=== PATIENT | female | born 1980 | race Hispanic/Latino ===

== ENCOUNTER 2021-05-18 10:35 | Emergency (ER) | payer MEDICARE ==
[~2021-05-18] VITALS: Ht 162.6 cm; Wt 90.7 kg
[~2021-05-18 10:35] MED LIST: CALC0.253 PO; CLOB10TA PO; FOLI1TAB15 PO; HALO1TAB PO; LAMO200T10 PO; LEVE500T19 PO; LEVO137T2 PO; VENL-53 PO; ZONI100C19 PO
[2021-05-18 14:57] VITALS: BP 145/74
== END 2021-05-18 14:57 | disposition home or self-care (01) ==
LOC: EDH 10:35
DX: Z04.3 Encounter for examination and observation following other accident (principal); F20.9 Schizophrenia, unspecified; I50.9 Heart failure, unspecified; Z79.899 Other long term (current) drug therapy; W18.39XA Other fall on same level, initial encounter; Y93.89 Activity, other specified; Y92.89 Other specified places as the place of occurrence of the external cause; Y99.8 Other external cause status
CPT/HCPCS: 71045; 72170